=== PATIENT | female | born 1995 | race Hispanic/Latino ===

== ENCOUNTER 2019-04-03 10:51 | Emergency (ER) | payer OTHER ==
[~2019-04-03] VITALS: Ht 167.6 cm; Wt 86.9 kg
[2019-04-03] MEDS ORDERED: PRENTAB29 (10:59)
[2019-04-03 12:28] LABS: BASO % 0.2 % (0.0-1.0); EOS # 0.1 10^3/uL (0.0-0.5); EOS % 0.9 % (0.0-3.0); HEMATOCRIT 44.5 % (36.0-47.0); HEMOGLOBIN 13.8 g/dl (12.0-15.5); LYMPH # 1.5 10^3/uL (1.5-5.0); LYMPH % 16.4 % (24.0-44.0); MEAN CORPUSCULAR HEMOGLOBIN 26.4 pg (27.0-33.0); MEAN CORPUSCULAR VOLUME 85.2 fl (80.0-96.0); MONO # 0.7 10^3/uL (0.0-0.8); MONO % 7.6 % (0.0-5.0); NEUTROPHILS # 6.8 10^3/uL (1.5-8.5); NEUTROPHILS % 74.6 % (36.0-66.0); PLATELET COUNT, AUTOMATED 361 10^3/uL (150-450); RED BLOOD COUNT 5.22 10^6/uL (4.00-5.40); WHITE BLOOD COUNT 9.1 10^3/uL (4.0-10.0)
[2019-04-03] MEDS ORDERED: DEXT1TAB15 PO (12:43)
[2019-04-03 13:09] LABS: ALT/SGPT 9 U/L (12-78); BILIRUBIN,DIRECT 0.1 MG/DL (0.0-0.2); BILIRUBIN,TOTAL 0.4 MG/DL (0.2-1.0); BLOOD UREA NITROGEN 8 MG/DL (7-18); CALCIUM LEVEL 9.3 MG/DL (8.5-10.1); CARBON DIOXIDE LEVEL 25 MEQ/L (21-32); CHLORIDE LEVEL 105 MEQ/L (98-107); CREATININE FOR GFR 0.71 MG/DL (0.55-1.30); GLOMERULAR FILTRATION RATE > 60.0 (>60); GLUCOSE, FASTING 97 MG/DL (70-100); HCG, SERUM QUANTITATIVE 51233 MIU/ML; LIPASE 119 U/L (73-393); POTASSIUM SERUM 3.7 MEQ/L (3.5-5.1); SODIUM LEVEL 138 MEQ/L (136-145)
[2019-04-03] MEDS ORDERED: ONDANSETRON 4 MG ORAL DISINTEGRATING TAB (Q0162 PER 1MG) PO ONE (13:30)
[2019-04-03] MEDS ORDERED: UNIS25TA3 PO (14:37)
[2019-04-03] MEDS ORDERED: PYRI25TA3 PO (14:37)
[2019-04-03 14:38] VITALS: BP 119/62
--- NOTE | 2019-04-03 14:46 | REP ---
FIRST TRIMESTER ULTRASOUND: Real-time sonographic evaluation of the gravid uterus performed utilizing transabdominal technique. There is a single living intrauterine gestation with an estimated gestational age 7 weeks based on a crown-rump length of 10 mm, EDC 11/20/2019. heart rate is 133 beats per minute. There is no subchorionic hemorrhage. No definite maternal adnexal region abnormality is seen. Ovaries are not visualized. Electronically Signed by Rocael Ramires MD 04/04/2019 01:46 P
== END 2019-04-03 14:52 | disposition home or self-care (01) ==
LOC: M ED 10:51 → EDSEX 10:51 → M ED 14:52
DX: O26.891 Other specified pregnancy related conditions, first trimester (principal); Z3A.01 Less than 8 weeks gestation of pregnancy; Z79.899 Other long term (current) drug therapy
CPT/HCPCS: 76801; 80048; 80076; 81001; 83690; 84702; 85025; 87086; 99284; Q0162

== ENCOUNTER → 2019-04-12 | Outpatient (REF) | payer OTHER ==
[~2019-04-12] MED LIST: DEXT1TAB15 PO; PRENTAB29; PYRI25TA3 PO; UNIS25TA3 PO
[2019-04-12 14:27] LABS: HEMATOCRIT 41.7 % (36.0-47.0); MEAN CORPUSCULAR HEMOGLOBIN 26.7 pg (27.0-33.0); MEAN CORPUSCULAR HGB CONC 31.2 g/dl (32.0-36.5); MEAN CORPUSCULAR VOLUME 85.6 fl (80.0-96.0); PLATELET COUNT, AUTOMATED 354 10^3/uL (150-450); RED BLOOD COUNT 4.87 10^6/uL (4.00-5.40); WHITE BLOOD COUNT 8.1 10^3/uL (4.0-10.0)
[2019-04-12 14:48] LABS: HCG, SERUM QUANTITATIVE 100891 MIU/ML
[2019-04-13 11:32] LABS: RUBELLA IgG QUALITATIVE IMMUNE (IMMUNE)
[2019-04-13 12:01] LABS: HIV 1&2 SCREEN CENTAUR NEGATIVE (NEGATIVE)
[2019-04-13 14:19] LABS: HEPATITIS C VIRUS ABY INDEX < 0.0 INDEX (<0.8)
== END ==
LOC: M LAB REF 13:11
PROVIDERS: ATTEND Obstetrics & Gynecology
DX: O36.80X0 Pregnancy with inconclusive fetal viability, not applicable or unspecified (principal)

== ENCOUNTER → 2019-04-13 | Outpatient (CLI) | payer OTHER ==
--- NOTE | 2019-04-13 15:04 | REP ---
First trimester obstetric sonography: History: Supervision of . Findings: Transabdominal scanning demonstrates a single living intrauterine gestation in a free-floating lie. The crown-rump length of the embryonic pole is 20 mm. This corresponds with a gestational age estimate of 8 weeks 4 days. heart rate is recorded at 160 beats per minute. No subchorionic hemorrhage is seen. No extrauterine abnormalities observed. Impression: Viable single intrauterine gestation at 8 weeks 4 days by crown-rump length. CANDICE by today's sonography November 19, 2019. Electronically Signed by Rico Daniels MD 04/13/2019 03:53 P
== END ==
LOC: M RAD 13:25
PROVIDERS: ATTEND Obstetrics & Gynecology
DX: O36.80X0 Pregnancy with inconclusive fetal viability, not applicable or unspecified (principal); Z3A.08 8 weeks gestation of pregnancy